=== PATIENT | female | born 1995 | race Caucasian/White ===

== ENCOUNTER 2020-07-29 10:51 | Emergency (ER) | payer OTHER ==
[~2020-07-29] VITALS: Ht 152.4 cm; Wt 74.6 kg
[~2020-07-29 10:51] MED LIST: ESCI20TA10 PO
[2020-07-29] MEDS ORDERED: SODIUM CHLORIDE FLUSH 10ML SYR IVF ONE (11:30)
[2020-07-29] MEDS ORDERED: SODIUM CHLORIDE 0.9% 1,000ML IVBOLUS ONE (11:30)
[2020-07-29] MEDS ORDERED: ONDANSETRON 2MG/ML, 2ML IVPush ONE (11:30)
[2020-07-29 11:37] LABS: MICROSCOPIC AUTO
[2020-07-29] MEDS ORDERED: ONDANSETRON 2MG/ML, 2ML ONE (11:41)
[2020-07-29 11:45] LABS: BASOPHILS % (AUTO) 1 % (0-1); EOSINOPHILS % (AUTO) 0 % (1-7); LYMPHOCYTES % (AUTO) 15 % (22-44); MEAN CORPUSCULAR HEMOGLOBIN 29.2 pg (27.0-34.8); MEAN CORPUSCULAR HGB CONC 34.7 g/dL (32.4-35.8); MONOCYTES % (AUTO) 3 % (2-9); NEUTROPHILS % (AUTO) 80 % (42-75); PLATELET COUNT 327 x10^3/uL (130-400); RED BLOOD COUNT 4.45 x10^6/uL (3.82-5.3); RED CELL DISTRIBUTION WIDTH 13.5 % (9.6-15.2)
[2020-07-29 11:46] LABS: MD NO
[2020-07-29 11:50] LABS: ALANINE AMINOTRANSFERASE 39 U/L (12-78); ALBUMIN 3.9 g/dL (3.4-5.0); ANION GAP 8 mmol/L (5-15); CALCIUM 9.3 mg/dL (8.5-10.1); CHLORIDE 109 mmol/L (98-107); CREATININE 0.74 mg/dL (0.55-1.02)
[2020-07-29 11:56] LABS: ALKALINE PHOSPHATASE 91 U/L (45-117); BILIRUBIN,TOTAL 0.3 mg/dL (0.2-1.0); TOTAL PROTEIN 7.8 g/dL (6.4-8.2)
[2020-07-29] MEDS ORDERED: OMNIPAQUE 350 MG/ML, 100ML BOTTLE ONE (13:47)
[2020-07-29] MEDS ORDERED: KETOROLAC 30 MG/1 ML ONE (14:52)
[2020-07-29 14:59] VITALS: BP 117/82
[2020-07-29] MEDS ORDERED: KETOROLAC 30 MG/1 ML IVPush ONE (15:00)
--- NOTE | 2020-07-29 15:00 | NUR ---
TASK RN: PA AT BEDSIDE DISCUSSING POC. MEDICATED NOTED ON MAR FOR PAIN AND IV DISCONTINUED IN ANTICIPATION OF DISCHARGE
== END 2020-07-29 15:14 | disposition home or self-care (01) ==
LOC: ED 13:08
DX: R10.31 Right lower quadrant pain (principal); R10.32 Left lower quadrant pain; R10.9 Unspecified abdominal pain; R11.2 Nausea with vomiting, unspecified
CPT/HCPCS: 36415; 74177; 80053; 81001; 83690; 84703; 85025; 96361; 96374; 99285; J1885; J2405; J7030; Q9967